=== PATIENT | male | born 1950 | race Two or more races ===

== ENCOUNTER 2019-07-07 08:40 | Outpatient (CLI) | payer OTHER | END 2019-07-07 08:56 | disposition home or self-care (01) | LOC: RAD 08:40 → MAMO-SONO 08:45 → RAD 08:56 | DX: E04.2 Nontoxic multinodular goiter (principal); M25.561 Pain in right knee; M25.562 Pain in left knee ==

== ENCOUNTER 2019-10-06 11:49 | Emergency (ER) | payer OTHER ==
[~2019-10-06] VITALS: Ht 180.3 cm; Wt 87.1 kg
[2019-10-06] MEDS ORDERED: SYNTHROID125 MCG (12:05)
[2019-10-06] MEDS ORDERED: TOPROL XL25 M1 (12:05)
== END 2019-10-06 14:14 | disposition home or self-care (01) ==
LOC: ER 11:49
DX: R42 Dizziness and giddiness (principal)

== ENCOUNTER 2019-10-18 08:04 | Outpatient (CLI) | payer OTHER ==
[~2019-10-18 08:04] MED LIST: SYNTHROID125 MCG; TOPROL XL25 M1
== END 2019-10-18 10:27 | disposition home or self-care (01) ==
LOC: NUCLEAR 08:04
DX: I65.23 Occlusion and stenosis of bilateral carotid arteries (principal)

== ENCOUNTER 2019-12-11 15:44 | Outpatient (CLI) | payer OTHER | END 2019-12-11 15:47 | disposition home or self-care (01) | LOC: RAD 15:44 | DX: M79.671 Pain in right foot (principal) ==

== ENCOUNTER 2021-09-29 07:19 | Outpatient (CLI) | payer OTHER | END 2021-09-29 07:31 | disposition home or self-care (01) | LOC: SONOGRAMA 07:19 | PROVIDERS: ATTEND General Practice | DX: R10.84 Generalized abdominal pain (principal); K80.20 Calculus of gallbladder without cholecystitis without obstruction; N28.89 Other specified disorders of kidney and ureter ==

== ENCOUNTER 2022-01-01 11:40 | Outpatient (CLI) | payer OTHER | END 2022-01-01 11:47 | disposition home or self-care (01) | LOC: RAD 11:40 | PROVIDERS: ATTEND General Practice | DX: M25.551 Pain in right hip (principal) ==

== ENCOUNTER 2022-01-14 08:00 | Outpatient (CLI) | payer OTHER | END 2022-01-14 08:30 | disposition home or self-care (01) | LOC: PPH VACUNA 08:00 | PROVIDERS: ATTEND Emergency Medicine Pediatric Emergency Medicine | DX: Z23 Encounter for immunization (principal) ==

== ENCOUNTER 2022-03-23 08:28 | Outpatient (CLI) | payer OTHER | END 2022-03-23 09:00 | disposition home or self-care (01) | LOC: SONOGRAMA 08:28 | PROVIDERS: ATTEND Internal Medicine Gastroenterology | DX: R10.9 Unspecified abdominal pain (principal) ==

== ENCOUNTER 2022-08-09 14:17 | Outpatient (CLI) | payer OTHER | END 2022-08-09 14:24 | disposition home or self-care (01) | LOC: RAD 14:17 | PROVIDERS: ATTEND Podiatrist Foot & Ankle Surgery | DX: M20.12 Hallux valgus (acquired), left foot (principal); M20.11 Hallux valgus (acquired), right foot ==

== ENCOUNTER 2023-05-20 10:32 | Emergency (ER) | payer OTHER ==
[~2023-05-20] VITALS: Ht 177.8 cm; Wt 95.3 kg
[2023-05-20] MEDS ORDERED: ATORVASTATIN CA10 MG PO (10:46)
== END 2023-05-20 16:46 | disposition home or self-care (01) ==
LOC: ER 10:32
DX: M25.471 Effusion, right ankle (principal); R60.9 Edema, unspecified; I10 Essential (primary) hypertension; E03.9 Hypothyroidism, unspecified; E79.0 Hyperuricemia without signs of inflammatory arthritis and tophaceous disease; I49.8 Other specified cardiac arrhythmias; Z98.890 Other specified postprocedural states; L03.115 Cellulitis of right lower limb
CPT/HCPCS: 36415; 73600; 99284; J0744; J1885

== ENCOUNTER 2023-06-27 11:43 | Outpatient (CLI) | payer OTHER ==
[~2023-06-27 11:43] MED LIST changes: +ATORVASTATIN CA10 MG PO
== END 2023-06-27 11:52 | disposition home or self-care (01) ==
LOC: RAD 11:43
DX: M20.12 Hallux valgus (acquired), left foot (principal); M20.11 Hallux valgus (acquired), right foot

== ENCOUNTER → 2024-12-06 | Outpatient (CLI) | payer OTHER | END | disposition home or self-care (01) | LOC: SONOGRAMA 11:53 | PROVIDERS: ATTEND General Practice | DX: M25.511 Pain in right shoulder (principal) ==

== ENCOUNTER 2025-01-30 08:14 | Outpatient (CLI) | payer OTHER ==
[2025-01-30 09:09] LABS: PH,URINE 5.5 (5.0-8.0); URINE APPEARANCE Clear; URINE BILIRRUBIN Negative (NEGATIVE); URINE BLOOD Negative; URINE COLOR Yellow; URINE GLUCOSE Negative (NEGATIVE); URINE KETONE Negative (NEGATIVE); URINE LEUKOCYTE Negative; URINE NITRATE Negative; URINE PROTEIN Negative (NEGATIVE); URINE UROBILINOGEN 0.2 E.U./dl
[2025-01-30 09:13] LABS: URINE BACTERIA 14.6 uL (0.0-1933); URINE EPITHELIAL CELLS 2.8 uL (0.0-38.8); URINE RBC 2.9 uL (0.0-20.8); URINE WBC 4.5 uL (0.0-23.2)
[2025-01-30 09:14] LABS: HEMATOCRIT 44.2 % (39.0-48.0); HEMOGLOBIN 15.6 g/dL (13-16.00); MEAN CELL VOLUME 98.7 fL (80.0-100.00); MEAN CORPUSCULAR HEMOGLOBIN 34.8 pg (27.00-32.0); MEAN CORPUSCULAR HGB CONC 35.2 g/dl (32.0-36.0); PLATELET COUNT 156 K/uL (150-450); RED BLOOD COUNT 4.48 M/uL (4.00-6.00); RED CELL DISTRIBUTION WIDTH 13.2 % (11.5-14.5)
[2025-01-30 09:51] LABS: URINE CAST 0.14 uL (0.0-1.40)
[2025-01-30 10:09] LABS: ALBUMIN 4.1 gm/dL (3.4-5.0); BILIRUBIN TOTAL 0.79 mg/dL (0.3-1.2); CREATININE SERUM 1.32 mg/dL (0.70-1.30); GFR 52.73; POTASSIUM 3.67 mEq/L (3.5-5.1); TOTAL PROTEIN 7.1 gm/dL (6.4-8.2)
[2025-01-30 10:10] LABS: PROSTATIC SPECIFIC ANTIGEN 4.06 NG/ML (0.010-4.00)
== END 2025-01-30 08:21 | disposition home or self-care (01) ==
LOC: LAB 08:14
PROVIDERS: ATTEND Radiology Diagnostic Radiology
DX: C20 Malignant neoplasm of rectum (principal); E78.5 Hyperlipidemia, unspecified; N40.0 Benign prostatic hyperplasia without lower urinary tract symptoms; C18.9 Malignant neoplasm of colon, unspecified

== ENCOUNTER 2025-01-30 09:04 | Outpatient (CLI) | payer OTHER | END 2025-01-30 09:06 | disposition home or self-care (01) | LOC: TOM 09:04 | DX: C20 Malignant neoplasm of rectum (principal) | CPT/HCPCS: 74178; Q9965 ==

== ENCOUNTER 2025-03-22 10:14 | Outpatient (CLI) | payer OTHER | END 2025-03-22 10:16 | disposition home or self-care (01) | LOC: RAD 10:14 | PROVIDERS: ATTEND Surgery | DX: C20 Malignant neoplasm of rectum (principal); R59.0 Localized enlarged lymph nodes; K62.5 Hemorrhage of anus and rectum ==

== ENCOUNTER 2025-04-02 11:30 | Inpatient (IN) | payer OTHER ==
[~2025-04-02] VITALS: Ht 175.3 cm; Wt 110.7 kg
[2025-04-02] MEDS ORDERED: ZYLOPRIM100 M1 PO (13:33)
[2025-04-02] MEDS ORDERED: FENOFIBRATE145 MG PO (13:33)
[2025-04-02 13:52] VITALS: BP 114/72
[2025-04-08] MEDS ORDERED: CEFTRIAXONE SODIUM 2,000 MG VIAL ONE (13:12)
[2025-04-08] MEDS ORDERED: METRONIDAZOLE/SODIUM CHLORIDE 500 MG/100 ML PIGGYBACK IV ONE (13:12)
[2025-04-08] MEDS ORDERED: POVIDONE-IODINE 118 ML BOTT TOP ONE (16:40)
[2025-04-08] MEDS ORDERED: BUPIVACAINE HCL/MPF 0.5% 30ML VIAL ONE (16:40)
[2025-04-08] MEDS ORDERED: HEMOSTATIC MATRIX 1 KIT KIT TOP ONE (16:40)
[2025-04-08] MEDS ORDERED: DIBUCAINE 30 GM TUBE ONE (16:40)
[2025-04-08] MEDS ORDERED: LIDOCAINE HCL 1%/EPINEPHRINE 20ML VIAL IJ ONE (16:41)
[2025-04-08] MEDS ORDERED: SURGIFLO APPLICATOR 1 EACH APPL TOP ONE (17:33)
[2025-04-08] MEDS ORDERED: THROMBIN,HU/FIBRINOGEN/CALCIUM 10 ML SYRINGE TOP ONE (18:42)
[2025-04-08] MEDS ORDERED: VISTASEAL DUAL APPICATOR 1 EACH APPL TOP ONE (18:42)
[2025-04-08] MEDS ORDERED: MORPHINE SULFATE 4 MG/ML CARTRIDGE IV PRN (19:15)
[2025-04-08] MEDS ORDERED: ONDANSETRON HCL 2 MG/ML VIAL IV PRN (19:15)
[2025-04-08] MEDS ORDERED: DEXTROSE 50 % IN WATER 0.5 G/ML VIAL IV PRN (19:15)
[2025-04-08] MEDS ORDERED: OxyCODONE HCL 5 MG TABLET (ROXICODONE) PO PRN (19:15)
[2025-04-08] MEDS ORDERED: RINGERS SOLUTION,LACTATED 1,000 ML IV SCH (19:15)
[2025-04-08] MEDS ORDERED: ACETAMINOPHEN 500 MG GEL..CAP PO SCH (20:00)
[2025-04-08] MEDS ORDERED: CELECOXIB 200 MG CAPSULE PO SCH (21:00)
[2025-04-08] MEDS ORDERED: FAMOTIDINE/PF 20 MG/2 ML VIAL IV PUSH SCH (21:00)
[2025-04-08] MEDS ORDERED: CIPROFLOXACIN IN 5 % DEXTROSE 400 MG/200 ML PIGGYBAG IV SCH (21:00)
[2025-04-08] MEDS ORDERED: FAMOTIDINE/PF 20 MG/2 ML VIAL ONE (21:01)
[2025-04-08] MEDS ORDERED: CIPROFLOXACIN IN 5 % DEXTROSE 400 MG/200 ML PIGGYBAG IV ONE (21:01)
[2025-04-08 22:10] VITALS: BP 134/71
[2025-04-08 22:14] LABS: BASO % 0.6 % (0.1-1.2); EOS # 0.13 (0.04-0.54); EOS % 1.8 % (0.7-7.0); HEMATOCRIT 39.7 % (40.1-51.0); HEMOGLOBIN 13.9 g/dL (13.7-17.5); LYMPH # 0.62 (1.18-3.74); LYMPH % 8.7 % (19.3-53.1); MEAN CORPUSCULAR HEMOGLOBIN 34.4 pg (25.6-32.2); NEUT % 80.9 % (34.0-71.1); PLATELET COUNT 143 K/uL (163-369); RED BLOOD COUNT 4.04 M/uL (4.63-6.08); RED CELL DISTRIBUTION WIDTH 13.2 % (11.6-14.4)
[2025-04-09] VITALS: BP 136/79; O2SAT 96
[2025-04-09] MEDS ORDERED: GABAPENTIN 300 MG CAPSULE PO SCH (01:00)
[2025-04-09] MEDS ORDERED: METOCLOPRAMIDE HCL 5 MG/ML VIAL IV SCH (01:00)
[2025-04-09] MEDS ORDERED: METRONIDAZOLE/SODIUM CHLORIDE 500 MG/100 ML PIGGYBACK IV SCH (01:00)
[2025-04-09] MEDS ORDERED: AMOX-CLAV 875-1 EACH PO (08:38)
[2025-04-09] MEDS ORDERED: JUVEN PACKET1 EAC1 PO (08:38)
[2025-04-09] MEDS ORDERED: INTESTINEX680 M1 PO (08:38)
[2025-04-09 08:40] VITALS: BP 116/66; O2SAT 97
[2025-04-09] MEDS ORDERED: HYOSCYAMINE SULFATE 0.125 MG TAB.SUBL SL SCH (09:00)
[2025-04-09] MEDS ORDERED: LACTOBACILLUS ACIDOPHILUS 1 CAP CAP PO SCH (09:00)
[2025-04-09] MEDS ORDERED: ENOXAPARIN SODIUM 40 MG/0.4 ML SYRINGE SUBCUTANEO SCH (17:00)
[2025-04-10] MEDS ORDERED: ENOXAPARIN SODIUM 40 MG/0.4 ML SYRINGE SUBCUTANEO SCH (09:00)
== END 2025-04-09 15:10 | disposition home or self-care (01) | DRG 375 ==
LOC: SURH 04-08 11:30 → O/R 04-08 14:10 → SURH 04-08 14:45 → SURG 04-08 19:45
PROVIDERS: ADMIT Surgery; ATTEND Surgery
PROC: 3E0T3BZ Introduction of Anesthetic Agent into Peripheral Nerves and Plexi, Percutaneous Approach (ICD-10-PCS; 2025-04-08)
PROC: 0DBP8ZZ Excision of Rectum, Via Natural or Artificial Opening Endoscopic (ICD-10-PCS; principal; 2025-04-08 14:45)
DX: C20 Malignant neoplasm of rectum (principal); K62.5 Hemorrhage of anus and rectum; L03.115 Cellulitis of right lower limb; R42 Dizziness and giddiness; M25.473 Effusion, unspecified ankle; R59.0 Localized enlarged lymph nodes
CPT/HCPCS: 0184T; 64430

== ENCOUNTER 2025-10-07 07:40 | Outpatient (CLI) | payer OTHER ==
[~2025-10-07 07:40] MED LIST changes: +AMOX-CLAV 875-1 EACH PO; +FENOFIBRATE145 MG PO; +INTESTINEX680 M1 PO; +JUVEN PACKET1 EAC1 PO; +ZYLOPRIM100 M1 PO
== END 2025-10-07 07:47 | disposition home or self-care (01) ==
LOC: TOM 07:40
PROVIDERS: ATTEND Internal Medicine
DX: C20 Malignant neoplasm of rectum (principal)
CPT/HCPCS: 71260; 74177; Q9965